=== PATIENT | female | born 1960 | race Caucasian/White ===

== ENCOUNTER 2020-06-28 09:35 | Outpatient (CLI) | payer OTHER, SELFPAY ==
--- NOTE | 2020-06-28 10:45 | FL_ITS ---
WS: [id number] SINGLE CONTRAST UPPER GI TECHNICAL: Single contrast upper GI. Fizzies not administered due to history of gastric surgery. FLUOROSCOPY TIME: 3.0 minutes CLINICAL INFORMATION: K28.3 Acute gastrojejunal ulcer without hemorrhage or per... COMPARISON: None. FINDINGS: Swallowing: No evidence of aspiration or penetration. Esophagus: Normal esophageal caliber. No stricture. Moderate esophageal dysmotility with delayed empt devendra and active reflux. Gastroesophageal reflux: Active reflux visualized in the upright and supine positions to the midesoph kingsley. Stomach: Postoperative changes Angelina-en-Y gastric bypass. Gastric pouch anastomosis to small bowel. No evidence of gastric outlet obstruction. Rapid gastric emptying. Small volume gastric pouch with rapi d emptying into the anastomosed small bowel. Irregular marginal ulceration at the anastomosis likely correlates to ulceration seen on recent endoscopy. No significant stricture or obstruction. Proximal small bowel is normal in appearance. No other significant findings. Other findings: None. FL/AR upper GI series [id number] IMPRESSION: 1. Postoperative changes Angelina-en-Y gastric bypass with gastric pouch. 2. Normal-appearing gastric pouch with rapid emptying. Small-volume gastric po uch. 3. Irregular ulceration at the anastomosis likely corresponds to known lesion seen on endoscopy. No evidence of stricture or obstruction. Normal emptying at the anastomosis. 4. Moderate esophageal reflux in the upright and supine position to the mideso phagus. 5. Mild esophageal dysmotility with delayed emptying likely due to chronic ref lux.
== END 2020-06-28 09:36 | disposition home or self-care (01) ==
LOC: RAD 09:39
PROVIDERS: PCP Nurse Practitioner Family; Visit Provider Surgery
DX: K28.3 Acute gastrojejunal ulcer without hemorrhage or perforation (principal); K21.9 Gastro-esophageal reflux disease without esophagitis; K28.9 Gastrojejunal ulcer, unspecified as acute or chronic, without hemorrhage or perforation
CPT/HCPCS: 74240; 74246

== ENCOUNTER → 2020-07-28 13:07 | Outpatient (BNVA) | payer OTHER, SELFPAY | PROVIDERS: PCP Nurse Practitioner Family; Visit Provider Surgery | DX: Z11.59 Encounter for screening for other viral diseases (principal) | CPT/HCPCS: 87635 ==

== ENCOUNTER 2020-08-02 06:27 | Day surgery (SDC) | payer OTHER, SELFPAY ==
[2020-07-31 11:07] VITALS: BMI 29.5
[2020-08-02 06:40] VITALS: BP 152/69; PULSE 52; RESP 18
[2020-08-02] MEDS: sodium chloride 0.9% 1,000 ML 30 ML IV (06:56)
--- NOTE | 2020-08-02 07:44 | P.ANESASSM_ITS ---
Pre-Anesthetic Assessment Pre-Anesthetic Assessment: Height/Weight: Height 1.52 m Weight 68.492 kg Pulse Resp BP 52 L 18 152/69 08/02/20 06:40 08/02/20 06:40 08/02/20 06:40 Preop Diagnosis: Status post gastric bypass concerning for marginal ulcer and screening colonoscopy Proposed Procedure: Operation Date: 08/02/20 07:30 Proposed Procedures p EGD/Colonsocopy [id number] K21.9 Z12.11(Not Applicable) - Ok Del Cid MD s Colonoscopy(Not Applicable) - Ok Del Cid MD Familial anesthetic complications: None Was Beta Tank taken within 24 porsche rs: N/A Last intake: Intake Last Liquid Date 08/01/20 Last Liquid Time 23:30 Last Solid Date 07/31/20 Last Solid Time 18:00 Social: Social History: No alcohol and No tobacco Comment: former smoker Exam: Pre-Anes Outpt Exam: alert, oriented x 3, clear to auscultation bilaterally and regular rate & rhythm Airway: Cervical ROM: WNL MP: 3 Dentition: Chipped Pulmonary: Pulmonary: COPD CV/HEM: Comments: HR 40s GI: GI: GERD Comments: hx gastric bypass Metabolic: Metabolic: Thyroid Anesthetic Plan: ASA status: 2 Anesthesia: MAC Risk of > 500 ml blood loss (7ml/kg in children): No Meds/Allergies Current Medications: Current Medications Generic Name Dose Route Start Last Admin Trade Name Freq PRN Reason Stop Dose Admin Sodium Chloride 1,000 mls @ 30 ml s/hr 08/02/20 06:45 08/02/20 06:56 Sodium Chloride 0.9% IV 30 mls/hr .Q24H SO Administration PFSH Anesthesia PFSH: Medical History (Updated 07/14/20 @ 13:19 by Ok Del Cid MD) Anxiety Arthritis Asthma COPD (chronic obstructive pulmonary disease) Depression Encounter for screening colonoscopy GERD (gastroesophageal reflux disease) Thyroid disease Surgical History H/O foot surgery H/O gastric bypass (~01/2019) Dr Iyer, [place], [place] H/O nasal septoplasty History of cholecystectomy History of hysterectomy Social History Smoking and tobacco status: former smoker Alcohol intake: never Lives independently: Yes Marital status: / Current occupational status: employed History of recent travel: No Data Anesthesia Cardiac Studies: No Data to Display
--- NOTE | 2020-08-02 07:49 | W.PM.OPSUD ---
Surgery/Procedure H&P Update DATE OF PROCEDURE: August 02, 2020 DATE H&P PERFORMED: 07/13/20 H&P UPDATE INFORMATION: I have reviewed H&P completed within last 30 days, I have examined patient prior to procedure and No changes to prior documentation PREOP DIAGNOSIS: Status post gastric bypass concerning for marginal ulcer and screening colonoscopy PRIMARY INDICATION FOR PROCEDURE: The same PLANNED PROCEDURE: Operation Date: 08/02/20 07:30 Proposed Procedures p EGD/Colonsocopy [id number] K21.9 Z12.11(Not Applicable) - Ok Del Cid MD s Colonoscopy(Not Applicable) - Ok Del Cid MD
[2020-08-02 08:29] VITALS: BP 118/71; PULSE 59; RESP 16; TEMP 36.1; O2SAT 98
--- NOTE | 2020-08-02 08:33 | ANE.PACU2 ---
Inpatient post-anesthesia follow up: Airway intact: Yes Vital signs: Temperature Pulse Rate 52 Respiratory Rate 18 Blood Pressure 152/69 Pulse Oximetry Oxygen Delivery Me thod Room Air Oxygen Flow Rate Fraction of Inspir ed Oxygen Hydration adequate: Yes Nausea and vomiting: No Pain level: 1 Mental status: Baseline
[2020-08-02 08:47] VITALS: BP 144/68; PULSE 48; RESP 16; O2SAT 99
== END 2020-08-02 09:00 | disposition home or self-care (01) ==
PROVIDERS: PCP Nurse Practitioner Family; Visit Provider Surgery
PROC: 0DJ08ZZ Inspection of Upper Intestinal Tract, Via Natural or Artificial Opening Endoscopic (ICD-10-PCS; CPT 43235; principal; 2020-08-02 07:30)
PROC: 0DJD8ZZ Inspection of Lower Intestinal Tract, Via Natural or Artificial Opening Endoscopic (ICD-10-PCS; CPT 45378; 2020-08-02 07:30)
DX: Z12.11 Encounter for screening for malignant neoplasm of colon (principal); Z98.84 Bariatric surgery status; Z87.11 Personal history of peptic ulcer disease; J44.9 Chronic obstructive pulmonary disease, unspecified; K21.9 Gastro-esophageal reflux disease without esophagitis; F41.9 Anxiety disorder, unspecified; M19.90 Unspecified osteoarthritis, unspecified site; Z87.891 Personal history of nicotine dependence
CPT/HCPCS: 12345; 43235; 45378; J2704; J3010; J7030

== ENCOUNTER 2022-01-22 08:29 | Outpatient (CLI) | payer BC, OTHER, SELFPAY ==
--- NOTE | 2022-01-22 08:41 | CT_ITS ---
WS: [id number] CT ABDOMEN AND PELVIS NONCONTRAST HISTORY: Z98.84 - Bariatric surgery status TECHNIQUE: Imaging performed through the abdomen and pelvis. Coronal and sagittal reformats are submi tted. Positive oral contrast. All CT scans at [facility] use at least one of these dose optimi zation techniques: automated exposure control; mA and/or kV adjustment per patient size (includes tar geted exams where dose is matched to clinical indication); or iterative reconstruction. DLP: 911.57 mGy.cm COMPARISON: Upper GI 06/28/2020. Lower thorax: Lung bases are clear. Visualized heart is normal. No hiatal hernia. Surgical clips at t he GE junction from a prior gastric bypass with Angelina-en-Y. Liver: Mildly heterogeneous liver. No discrete mass identified. Gallbladder: Not identified. Pancreas: Normal size and attenuation. Normal pancreatic duct. No pancreatitis or mass. Spleen: Normal. Adrenal glands: 2.1 x 1.7 cm RIGHT adrenal adenoma. LEFT adrenal gland is normal. Right kidney: Numerous small nonobstructing calcifications. The largest calcification in the lower po le measures 4 mm. No renal obstruction or perinephric stranding. Left kidney: Normal size kidney with no perinephric stranding. Numerous small nonobstructing calcific ations. The largest calcification in the mid kidney measures 4 mm. Aorta: Mild atherosclerosis abdominal aorta with no aneurysm. No free fluid, intraperitoneal air or significant lymphadenopathy. Focal area of omental fat necrosis in the midline of the peritoneal cavity. Necrosis measures 13 x 15 mm. GI tract: Status post gastric bypass. There is no obstruction. Contrast is noted within the small bow el and colon. No adjacent inflammation. No small bowel obstruction. Diffuse mild constipation and fec al retention. Normal appendix. Abdominal wall: Negative. No hernia. Pelvis: No free fluid or adenopathy. Prior hysterectomy. There is a calcified nodule in the LEFT adne xa measuring 2.0 cm. Osseous structures: 2 mm anterolisthesis of L5. Facet joint arthritis in the lower lumbar spine. CT/CT abdomen pelvis wo con [id number] IMPRESSION: 1. Status post gastric bypass with Angelina-en-Y. No CT abnormalities are identifi ed. The contrast moves readily into the small bowel and colon. 2. Mild diffuse constipation. 3. Nonobstructing bilateral renal calculi. 4. Prior cholecystectomy and hysterectomy.
== END 2022-01-22 08:30 | disposition home or self-care (01) ==
LOC: RAD 08:30
PROVIDERS: PCP Nurse Practitioner Family; Visit Provider Surgery
DX: Z98.84 Bariatric surgery status (principal); N20.0 Calculus of kidney; K59.00 Constipation, unspecified; Z90.710 Acquired absence of both cervix and uterus; Z90.49 Acquired absence of other specified parts of digestive tract
CPT/HCPCS: 74176